=== PATIENT | female | born 1955 | race Caucasian/White ===

== ENCOUNTER 2018-05-21 07:56 | Emergency (ER) | payer BC, OTHER ==
[2018-05-21 08:12] VITALS: BMI 15.0
--- NOTE | 2018-05-21 09:53 | PDOC ---
History of Present Illness - General Chief Complaint: Pain Stated Complaint: PAIN Time Seen by Provider: 05/21/18 08:13 History Source: Patient Exam Limitations: No Limitations - History of Present Illness Travel History: No Initial Comments: 05/21/18 09:08 63 yr old female presents to ED with complaints of worsening constipation over the past few days associated now with nausea this morning. Patient also complaining of lower abdominal distention but able to pass gas. Patient states on Tuesday had went to a local ER in the [place] for a did not address the constipation was more concerned with abdominal pain focusing on the heart. Patient states had lab work EKG and chest x-ray with no physical findings. Patient also states that her called her doctor put order her an abdominal ultrasound which was performed yesterday but has not received the results. Patient states decided come to the ER today due to worsening symptoms. Patient states that the past 5 days has had difficulty moving her bowels complaining of hard small stools. Patient denies fever, chills, change in urine pattern, recent constipation or GI history. 0 Timing/Duration: reports: getting worse Quality: reports: moderate, fullness Abdominal Pain Onset Location: reports: generalized abdomen Pain Radiation: reports: no radiation Activities at Onset: reports: none Aggravating Factors: improves with: None Alleviating Factors: improves with: None Past History - Past Medical History Allergies/Adverse Reactions: Allergies Allergy/AdvReac Type Severity Reaction Status Date / Time No Known Allergies Allergy Verified 05/21/18 08:10 Home Medications: Ambulatory Orders Nitrofurantoin Monohyd/M-Cryst [Macrobid -] 100 mg PO BID #14 capsule 05/21/18 Polyethylene Glycol 3350 [Miralax (For Bowel Prep) -] 17 gm PO ONCE #1 bottle COPD: No GI Disorders: Yes (gerd) - Suicide/Smoking/Psychosocial Hx Smoking History: Never smoked Have you smoked in the past 12 months: No Information on smoking cessation initiated: No Hx Alcohol Use: No Drug/Substance Use Hx: No Substance Use Type: None Patient Lives Alone: No Lives with/in: spouse/SO Review of Systems - Review of Systems Able to Perform ROS?: No Constitutional: No: Symptoms Reported HEENTM: No: Symptoms Reported Respiratory: No: Symptoms reported Cardiac (ROS): No: Symptoms Reported ABD/GI: Yes: Abdominal Distended, Constipated, Nausea, Poor Appetite, Poor Fluid Intake, Abdominal cramping : No: Symptoms Reported Musculoskeletal: No: Symptoms Reported Integumentary: No: Symptoms Reported Neurological: No: Symptoms reported Endocrine: No: Symptoms Reported Hematologic/Lymphatic: No: Symptoms Reported *Physical Exam - Vital Signs Last Vital Signs Temp Pulse Resp BP Pulse Ox 98.6 F 70 18 119/64 100 05/21/18 08:08 05/21/18 08:08 05/21/18 08:08 05/21/18 08:08 05/21/18 08:31 - Physical Exam General Appearance: Yes: Nourished, Appropriately Dressed. No: Apparent Distress Respiratory/Chest: positive: Lungs Clear, Normal Breath Sounds. negative: Respiratory Distress, Accessory Muscle Use Cardiovascular: positive: Regular Rhythm, Regular Rate. negative: Murmur Gastrointestinal/Abdominal: positive: Normal Bowel Sounds, Soft, Distended ( mild generalized greater than lower quadrants), Tenderness (lower quadrans bilaterally.). negative: Guarding, Rebound Extremity: positive: Normal Capillary Refill. negative: Pedal Edema Integumentary: positive: Normal Color, Moist Neurologic: positive: Motor Strength 5/5 (ambulatory) ED Treatment Course - RADIOLOGY Radiology Studies Ordered: Category Date Time Status KUB (KID UR & BLAD) [RAD] Stat Radiology 05/21/18 08:22 Completed Medical Decision Making - Medical Decision Making 05/21/18 09:07 Patient here with worsening constipation operably of nausea. Patient exam had abdominal tenderness greater in the lower quadrants with mild abdominal distention. Patient ordered for KUB and urine with urine culture. 05/21/18 10:09 KUB shows constipation without fecal impaction. Patient will be given MiraLAX upon discharge, and keflex for uti. urine culture sent. Laboratory Tests 05/21/18 09:45 Urine Protein 2+ H Urine Ketones Trace H Urine Blood 3+ H Urine Nitrite Negative Ur Leukocyte Esterase Negative Urine WBC (Auto) 23 Urine RBC (Auto) 77 *DC/Admit/Observation/Transfer Diagnosis at time of Disposition: UTI (urinary tract infection), Constipation - Discharge Dispostion Disposition: HOME Condition at time of disposition: Good - Prescriptions Prescriptions: Nitrofurantoin Monohyd/M-Cryst [Macrobid -] 100 mg PO BID #14 capsule Polyethylene Glycol 3350 [Miralax (For Bowel Prep) -] 17 gm PO ONCE #1 bottle - Referrals Referrals: Yann Young [Primary Care Provider] - - Patient Instructions Printed Discharge Instructions: DI for Urinary Tract Infection (UTI), DI for Constipation Additional Instructions: Please take antibiotics as prescribed. Please drink plenty of fluids. Please take MiraLAX as prescribed and follow-up care doctor later this week. - Post Discharge Activity
[2018-05-21 10:00] LABS: URINE APPEARANCE CLEAR; URINE BILIRUBIN NEGATIVE (<2.0 mg/dL); URINE COLOR YELLOW; URINE GLUCOSE (UA) NEGATIVE (NEGATIVE); URINE KETONE TRACE (NEGATIVE); URINE LEUK ESTERASE NEGATIVE (NEGATIVE); URINE NITRITE NEGATIVE (NEGATIVE); URINE UROBILINOGEN NEGATIVE mg/dL (0.2-1.0)
[2018-05-21 10:03] LABS: URINE PROTEIN 2+ (NEGATIVE)
[2018-05-21 10:08] LABS: EPI CELLS RARE /HPF (FEW); URINE MUCUS RARE
[2018-05-21 10:23] VITALS: BP 137/69; PULSE 62; TEMP 98.1
== END 2018-05-21 10:23 | disposition home or self-care (01) ==
LOC: JER 07:56
DX: N39.0 Urinary tract infection, site not specified (principal); K59.00 Constipation, unspecified
CPT/HCPCS: 74018-TC-FY; 81003; 81015; 87086; 99282-25

== ENCOUNTER 2021-09-13 06:36 | Emergency (ER) | payer BC, OTHER ==
[2021-09-13 06:57] VITALS: BP 128/69; PULSE 68; TEMP 97.2; BMI 16.0
[2021-09-13 09:17] LABS: EPI CELLS 3 /uL (0-25.1); HYALINE CASTS 0 /uL (0-3.1); PH,URINE 6.5 (5.0-8.0); URINE APPEARANCE CLEAR; URINE BACTERIA 6 /uL (0-1359); URINE BILIRUBIN NEGATIVE (NEGATIVE); URINE COLOR YELLOW; URINE GLUCOSE (UA) NEGATIVE (NEGATIVE); URINE KETONE NEGATIVE (NEGATIVE); URINE LEUK ESTERASE NEGATIVE (NEGATIVE); URINE NITRITE NEGATIVE (NEGATIVE); URINE PROTEIN NEGATIVE (NEGATIVE); URINE RBC 76 /uL (0-23.9); URINE UROBILINOGEN 0.2 mg/dL (0.2-1.0); URINE WBC 1 /uL (0-25.8)
== END 2021-09-13 09:50 | disposition home or self-care (01) ==
LOC: JER 06:36
PROC: 2W3KX1Z Immobilization of Left Finger using Splint (ICD-10-PCS; principal; 2021-09-13)
DX: S62.643A Nondisplaced fracture of proximal phalanx of left middle finger, initial encounter for closed fracture (principal); W23.0XXA Caught, crushed, jammed, or pinched between moving objects, initial encounter
CPT/HCPCS: 73130-TC-LT-FY; 81003; 87086; 99284-25